=== PATIENT | female | born 1975 | race Caucasian/White ===

== ENCOUNTER 2021-11-13 19:03 | Emergency (ER) | payer BC ==
[2021-11-13 20:13] LABS: HEMOGLOBIN 14.7 gm/dl (12.3-15.3); RED BLOOD COUNT 5.21 M/UL (4.00-5.10); WHITE BLOOD COUNT 13.9 K/UL (4.5-11.0)
[2021-11-13 21:23] LABS: BUN/CREATININE RATIO 18 (0-10)
== END 2021-11-13 23:30 | disposition home or self-care (01) ==
LOC: ER1 19:03
PROVIDERS: Emergency Medicine
DX: R07.89 Other chest pain (principal)
CPT/HCPCS: 80053; 82550; 82553; 83880; 84484; 85025; 85379; 93005; 99285; Q9967